=== PATIENT | female | born 1990 | race Caucasian/White ===

== ENCOUNTER 2021-05-23 18:58 | Emergency (ER) | payer MEDICAID ==
[~2021-05-23] VITALS: Ht 152.4 cm; Wt 45.4 kg
[2021-05-23 19:00] VITALS: BP 108/68
--- NOTE | 2021-05-23 19:03 | NUR ---
TO LOBBY A/W BED AMBULATORY
[2021-05-23] MEDS ORDERED: LORA10TA19 PO (20:45)
[2021-05-23] MEDS ORDERED: BEN50 PO (20:45)
[2021-05-23] MEDS ORDERED: BENC TP (20:45)
--- NOTE | 2021-05-23 21:05 | NUR ---
Patient evaluated by Dr. Broussard, no nursing care provided for this patient. Patient discharged at this time in stable condition. Discharge instructions given. Rx of benadryl cream, benadryl tablets, and claritin. Medication administration and possible side effects explained. All questions asked and answered prior discharge.
== END 2021-05-23 21:05 | disposition home or self-care (01) ==
LOC: MED 18:58
DX: R21 Rash and other nonspecific skin eruption (principal); L29.9 Pruritus, unspecified
CPT/HCPCS: 99282

== ENCOUNTER 2021-11-14 14:11 | Emergency (ER) | payer MEDICAID ==
[~2021-11-14] VITALS: Ht 144.8 cm; Wt 46.7 kg
[~2021-11-14 14:11] MED LIST: BEN50 PO; BENC TP; LORA10TA19 PO
[2021-11-14 15:18] VITALS: BP 117/74
[2021-11-14] MEDS ORDERED: CEPH-588 PO (15:51)
[2021-11-14] MEDS ORDERED: ACET-10509 PO (15:51)
--- NOTE | 2021-11-14 16:39 | NUR ---
NO NURSING CARE RENDERED.Patient discharged with v/s stable. Written and verbal after care instructions given and explained. Patient alert, oriented and verbalized understanding of instructions. Police with steady gait. All questions addressed prior to discharge. ID band removed. Patient advised to follow up with PMD. Rx TYLENOL, KEFLEX given. Patient educated on indication of medication including possible reaction and side effects. Opportunity to ask questions provided and answered.
== END 2021-11-14 16:39 | disposition home or self-care (01) ==
LOC: MED 14:11
DX: N39.0 Urinary tract infection, site not specified (principal); Z79.899 Other long term (current) drug therapy
CPT/HCPCS: 81002; 81025; 99283

== ENCOUNTER 2022-04-01 09:30 | Emergency (ER) | payer MEDICAID ==
[~2022-04-01] VITALS: Ht 152.4 cm; Wt 49.9 kg
[~2022-04-01 09:30] MED LIST changes: +ACET-10509 PO; +CEPH-588 PO
[2022-04-01 09:34] VITALS: BP 125/87
--- NOTE | 2022-04-01 10:01 | NUR ---
DR GARAY AT BEDSIDE EVALUATING PT
[2022-04-01] MEDS ORDERED: ONDANSETRON 4 MG/2 ML VIAL IVP ONE (10:05)
[2022-04-01] MEDS ORDERED: NACL 0.9% 1,000 ML IV SCH (10:05)
[2022-04-01] MEDS ORDERED: KETOROLAC 30 MG/ML VIAL IVP ONE (10:05)
--- NOTE | 2022-04-01 10:32 | NUR ---
PT TAKEN TO CT VIA [facility]
[2022-04-01 10:36] LABS: BASOPHILS # (AUTO) 0.1 K/uL (0.00-0.22); EOSINOPHILS # (AUTO) 0.3 K/uL (0-0.4); EOSINOPHILS % (AUTO) 5.1 % (0.0-4.0); HEMATOCRIT 29.3 % (36-48); HEMOGLOBIN 9.3 g/dL (12.0-16.0); LYMPHOCYTES # (AUTO) 1.6 K/uL (2.5-16.5); LYMPHOCYTES % (AUTO) 29.5 % (20.5-51.1); MEAN CORPUSCULAR HEMOGLOBIN 23 pg (27-31); MEAN CORPUSCULAR HGB CONC 32 g/dL (33-37); MEAN CORPUSCULAR VOLUME 73.7 fL (80-94); MONOCYTES # (AUTO) 0.7 K/uL (0.8-1.0); MONOCYTES % (AUTO) 12.5 % (1.7-9.3); NEUTROPHILS # (AUTO) 2.8 K/uL (1.8-7.7); NEUTROPHILS % (AUTO) 51.9 % (42.2-75.2); PLATELET COUNT (AUTO) 302 K/uL (140-450); RED BLOOD CELL COUNT(AUTO) 3.97 MIL/uL (4.20-5.40); RED CELL DISTRIBUTION WIDTH 16.7 % (11.6-13.7); WHITE BLOOD COUNT (AUTO) 5.4 K/uL (4.8-10.8)
[2022-04-01 10:42] LABS: APPEARANCE,URINE CLEAR (CLEAR); BILIRUBIN,URINE NEGATIVE (NEGATIVE); BLOOD, URINE TRACE-I (NEGATIVE); COLOR,URINE YELLOW (YELLOW); LEUKOCYTE ESTERASE ,URINE NEGATIVE (NEGATIVE); NITRITE, URINE NEGATIVE (NEGATIVE); UGLUCOSE NEGATIVE (NEGATIVE)
--- NOTE | 2022-04-01 10:50 | NUR ---
PT RETURNED FROM CT VIA [facility]
[2022-04-01 11:11] LABS: OTHER CASTS, URINE None Seen /LPF (None Seen); RBC,URINE 0-5 /HPF (0-5); WBC,URINE 0-5 /HPF (0-5)
[2022-04-01 11:12] LABS: ALBUMIN 3.9 g/dL (3.4-5.0); ANION GAP 9.2 (8-16); CARBON DIOXIDE 27.2 mmol/L (21-32); CREATININE 0.7 mg/dL (0.6-1.3); POTASSIUM 3.4 mmol/L (3.5-5.1); TOTAL BILIRUBIN 0.3 mg/dL (0.0-1.0)
[2022-04-01] MEDS ORDERED: ACET-8386 PO (11:52)
[2022-04-01] MEDS ORDERED: IBUP-2213 PO (11:52)
[2022-04-01] MEDS ORDERED: ONDA8TAB87 PO (11:52)
--- NOTE | 2022-04-01 12:07 | NUR ---
IV removed, catheter intact and site benign. Applied folded 4x4 gauze and tape to stop bleeding.
--- NOTE | 2022-04-01 12:07 | NUR ---
Patient discharged with v/s stable. Written and verbal after care instructions FOR ABDOMINAL PAIN AND NAUSEA/VOMITING given and explained. Patient alert, oriented and verbalized understanding of instructions. Ambulatory with steady gait. All questions addressed prior to discharge. IV REMOVED.ID band removed. Patient advised to follow up with PMD. Rx of HYDROCODONE, IBURPROFEN, ZOFRAN given. Opportunity to ask questions provided and answered.
--- NOTE | 2022-04-01 12:08 | NUR ---
The patient's care was reviewed and supervised by Vikki Bond RN.
[2022-04-01 12:09] VITALS: BP 104/65
== END 2022-04-01 12:07 | disposition home or self-care (01) ==
LOC: MED 09:30
DX: R10.11 Right upper quadrant pain (principal); M54.50 Low back pain, unspecified; R11.2 Nausea with vomiting, unspecified; Z79.899 Other long term (current) drug therapy; Z98.890 Other specified postprocedural states
CPT/HCPCS: 36415; 74176; 80053; 81001; 81025; 83690; 85025; 96361; 96374; 96375; 99284; J1885; J2405; J7030

== ENCOUNTER 2022-04-24 21:30 | Emergency (ER) | payer MEDICAID ==
[~2022-04-24] VITALS: Ht 152.4 cm; Wt 52.2 kg
[~2022-04-24 21:30] MED LIST changes: +ACET-8386 PO; +IBUP-2213 PO; +ONDA8TAB87 PO
[2022-04-24 21:35] VITALS: BP 140/81
--- NOTE | 2022-04-24 22:43 | NUR ---
XRAY AT BEDSIDE
--- NOTE | 2022-04-24 22:43 | NUR ---
MEDICAL INFORMATION OFFICER AT BEDSIDE OBTAINING SAMPLE
[2022-04-24 22:53] LABS: BASOPHILS # (AUTO) 0.1 K/uL (0.00-0.22); EOSINOPHILS # (AUTO) 0.2 K/uL (0-0.4); EOSINOPHILS % (AUTO) 2.3 % (0.0-4.0); HEMATOCRIT 30.1 % (36-48); HEMOGLOBIN 9.5 g/dL (12.0-16.0); LYMPHOCYTES # (AUTO) 2.2 K/uL (2.5-16.5); LYMPHOCYTES % (AUTO) 28.6 % (20.5-51.1); MEAN CORPUSCULAR HEMOGLOBIN 24 pg (27-31); MEAN CORPUSCULAR HGB CONC 32 g/dL (33-37); MEAN CORPUSCULAR VOLUME 74.3 fL (80-94); MONOCYTES % (AUTO) 13.1 % (1.7-9.3); NEUTROPHILS # (AUTO) 4.2 K/uL (1.8-7.7); PLATELET COUNT (AUTO) 352 K/uL (140-450); RED BLOOD CELL COUNT(AUTO) 4.05 MIL/uL (4.20-5.40); RED CELL DISTRIBUTION WIDTH 18.5 % (11.6-13.7); WHITE BLOOD COUNT (AUTO) 7.6 K/uL (4.8-10.8)
--- NOTE | 2022-04-24 22:57 | NUR ---
32 Y/O FEMALE BIB SELF FOR C/O r SIDED, INTERMITTENT CHEST PAIN RADIATING TO STERNAL X 2 DAYS. PATIENT STATES PAIN INCREASES SOB. NO HX OF SAME. NO PAIN AT THIS TIME. A/OX4, GCS-15; DENIES COUGH OR FEVER. UNLABORED BREATHING SPEAKING IN FULL SENTENCES; AMBULATORY W/O ASSISTANCE; NO EDEMA OF JVD. NKA DENIES HX
[2022-04-24 23:06] LABS: ANION GAP 9.7 (8-16); CARBON DIOXIDE 23.7 mmol/L (21-32); CREATININE 0.9 mg/dL (0.6-1.3); POTASSIUM 3.4 mmol/L (3.5-5.1); TOTAL BILIRUBIN 0.2 mg/dL (0.0-1.0)
[2022-04-24 23:12] LABS: LIPASE 163 U/L (73-393)
--- NOTE | 2022-04-25 00:20 | NUR ---
er md at bedside discussing pt results
[2022-04-25] MEDS ORDERED: NAPR-54 PO (00:22)
[2022-04-25 00:28] VITALS: BP 99/65
--- NOTE | 2022-04-25 00:29 | NUR ---
Patient discharged with v/s stable. Written and verbal after care instructions given and explained. Patient alert, oriented and verbalized understanding of instructions. Ambulatory with steady gait. All questions addressed prior to discharge. ID band removed. Patient advised to follow up with PMD. Rx of naprosyn given. Patient educated on indication of medication including possible reaction and side effects. Opportunity to ask questions provided and answered. a/ox4, vss, ambulatory, unlabored breathing, and calm demenaor.
== END 2022-04-25 00:29 | disposition home or self-care (01) ==
LOC: MED 21:30
DX: R07.9 Chest pain, unspecified (principal)
CPT/HCPCS: 36415; 71045; 80053; 83690; 83880; 84484; 85025; 93005; 99285

== ENCOUNTER 2022-11-19 08:15 | Emergency (ER) | payer MEDICAID ==
[~2022-11-19] VITALS: Ht 149.9 cm; Wt 48.1 kg
[~2022-11-19 08:15] MED LIST changes: -ACET-8386 PO; +ACET-8905 PO; +NAPR-54 PO
[2022-11-19 08:21] VITALS: BP 112/86
--- NOTE | 2022-11-19 09:00 | NUR ---
32/F PRESENTS TO ED WITH C/O BILATERAL FLANK PAIN SINCE FRIDAY, STATES PAIN WORSENS WITH MOVEMENT. REPORTS TAKING ALEVE WITH NO RELIEF, DENIES DYSURIA, HEMATURIA, DENIES RECENT INJURY OR TRAUMA.
[2022-11-19] MEDS ORDERED: KETOROLAC 30 MG/ML VIAL IM ONE (09:10)
--- NOTE | 2022-11-19 09:15 | NUR ---
URINE SAMPLE COLLECTED AND WALKED TO LAB
[2022-11-19 11:44] LABS: APPEARANCE,URINE CLEAR (CLEAR); BILIRUBIN,URINE NEGATIVE (NEGATIVE); BLOOD, URINE 1+ (NEGATIVE); COLOR,URINE YELLOW (YELLOW); LEUKOCYTE ESTERASE ,URINE TRACE (NEGATIVE); NITRITE, URINE NEGATIVE (NEGATIVE); PH,URINE 6.5 (5.0-9.0); UGLUCOSE NEGATIVE (NEGATIVE)
[2022-11-19] MEDS ORDERED: NITR100C7 PO (12:05)
[2022-11-19] MEDS ORDERED: ACET-8905 PO (12:05)
[2022-11-19 12:12] VITALS: BP 127/66
--- NOTE | 2022-11-19 12:12 | NUR ---
Patient discharged with v/s stable. Written and verbal after care instructions ABOUT ACUTE BACK PAIN AND URINARY TRACT INFECTION given and explained. Patient alert, oriented and verbalized understanding of instructions. Ambulatory with steady gait. All questions addressed prior to discharge. ID band removed. Patient advised to follow up with PMD. Rx of NORCO 5-325, MACROBID given. Patient educated on indication of medication including possible reaction and side effects. Opportunity to ask questions provided and answered.
[2022-11-19 12:17] LABS: WBC,URINE 0-5 /HPF (0-5)
== END 2022-11-19 12:12 | disposition home or self-care (01) ==
LOC: MED 08:15
DX: N39.0 Urinary tract infection, site not specified (principal)
CPT/HCPCS: 81001; 81025; 87086; 96372; 99283; J1885

== ENCOUNTER 2023-11-04 10:05 | Emergency (ER) | payer MEDICAID ==
[~2023-11-04] VITALS: Ht 142.2 cm; Wt 46.3 kg
[~2023-11-04 10:05] MED LIST changes: +NITR100C7 PO
[2023-11-04 10:30] VITALS: BP 126/87; PULSE 67; RESP 20; TEMP 97.9; O2SAT 99
[2023-11-04] MEDS ORDERED: KETOROLAC 30 MG/ML VIAL IM ONE (10:50)
[2023-11-04 10:58] LABS: APPEARANCE,URINE SL CLOUDY (CLEAR); BILIRUBIN,URINE NEGATIVE (NEGATIVE); BLOOD, URINE TRACE-I (NEGATIVE); COLOR,URINE YELLOW (YELLOW); LEUKOCYTE ESTERASE ,URINE 1+ (NEGATIVE); NITRITE, URINE NEGATIVE (NEGATIVE); PROTEIN,URINE NEGATIVE (NEGATIVE); UGLUCOSE NEGATIVE (NEGATIVE); UROBILINOGEN,URINE 0.2 EU/dL (0.2 - 1)
[2023-11-04 11:05] LABS: BACTERIA,URINE 1+ /HPF (None Seen); MUCUS,URINE None Seen /LPF (None Seen); RBC,URINE 0-5 /HPF (0-5); SQUAMOUS EPITHELIAL CELL,UR 4-10 (MOD) /LPF (0-3 (FEW))
[2023-11-04] MEDS ORDERED: CAPS1ADH5 TP (11:27)
[2023-11-04] MEDS ORDERED: CEPH-588 PO (11:27)
[2023-11-04] MEDS ORDERED: NAPR-1704 PO (11:27)
[2023-11-04 11:34] VITALS: BP 120/80; PULSE 71; RESP 20; TEMP 98; O2SAT 99
== END 2023-11-04 11:34 | disposition home or self-care (01) ==
LOC: MED 10:05
DX: S39.012A Strain of muscle, fascia and tendon of lower back, initial encounter (principal); N39.0 Urinary tract infection, site not specified; Z79.899 Other long term (current) drug therapy; X58.XXXA Exposure to other specified factors, initial encounter; Y93.89 Activity, other specified; Y92.89 Other specified places as the place of occurrence of the external cause; Y99.8 Other external cause status
CPT/HCPCS: 72100; 81001; 81025; 87086; 96372; 99284; J1885

== ENCOUNTER 2023-12-09 22:12 | Emergency (ER) | payer MEDICAID ==
[~2023-12-09] VITALS: Ht 149.9 cm; Wt 45.4 kg
[~2023-12-09 22:12] MED LIST changes: +CAPS1ADH5 TP; +NAPR-1704 PO
[2023-12-09 22:15] VITALS: BP 108/62; PULSE 87; RESP 19; TEMP 98.5; O2SAT 98
[2023-12-09 22:55] LABS: FLU A ANTIGEN negative (NEGATIVE); FLU B ANTIGEN NEGATIVE (NEGATIVE)
[2023-12-10 03:08] LABS: BASOPHILS % (AUTO) 0.9 % (0.0-2.0); EOSINOPHILS % (AUTO) 1.1 % (0.0-4.0); HEMATOCRIT 28.3 % (36-48); HEMOGLOBIN 9.2 g/dL (12.0-16.0); LYMPHOCYTES # (AUTO) 1.4 K/uL (2.5-16.5); LYMPHOCYTES % (AUTO) 31.6 % (20.5-51.1); MEAN CORPUSCULAR HEMOGLOBIN 23 pg (27-31); MEAN CORPUSCULAR HGB CONC 32 g/dL (33-37); NEUTROPHILS # (AUTO) 1.8 K/uL (1.8-7.7); NEUTROPHILS % (AUTO) 42.4 % (42.2-75.2); PLATELET COUNT (AUTO) 269 K/uL (140-450); RED BLOOD CELL COUNT(AUTO) 3.93 MIL/uL (4.20-5.40); RED CELL DISTRIBUTION WIDTH 18.4 % (11.6-13.7); WHITE BLOOD COUNT (AUTO) 4.3 K/uL (4.8-10.8)
[2023-12-10 03:16] LABS: ANION GAP 11.1 (8-16); CALCIUM 8.4 mg/dL (8.5-10.1); CARBON DIOXIDE 26.9 mmol/L (21-32); CREATININE 0.7 mg/dL (0.6-1.3)
[2023-12-10] MEDS ORDERED: ACETAMINOPHEN EXTRA STRENGTH 500 MG TAB PO ONE (03:20)
[2023-12-10] MEDS ORDERED: KETOROLAC 30 MG/ML VIAL IM ONE (03:20)
[2023-12-10 03:22] LABS: ALBUMIN 3.6 g/dL (3.4-5.0); TOTAL BILIRUBIN 0.1 mg/dL (0.0-1.0); TOTAL PROTEIN, SERUM 8.1 g/dL (6.4-8.2)
[2023-12-10] MEDS ORDERED: ONDANSETRON 4 MG ODT PO ONE (03:40)
[2023-12-10 04:32] LABS: APPEARANCE,URINE CLEAR (CLEAR); BILIRUBIN,URINE NEGATIVE (NEGATIVE); BLOOD, URINE TRACE-I (NEGATIVE); COLOR,URINE YELLOW (YELLOW); LEUKOCYTE ESTERASE ,URINE TRACE (NEGATIVE); NITRITE, URINE NEGATIVE (NEGATIVE); PROTEIN,URINE NEGATIVE (NEGATIVE); UGLUCOSE NEGATIVE (NEGATIVE); UROBILINOGEN,URINE 0.2 EU/dL (0.2 - 1)
[2023-12-10 04:55] LABS: RBC,URINE 0-5 /HPF (0-5)
[2023-12-10 04:56] LABS: BACTERIA,URINE 10-30 (MOD) /HPF (None Seen); MUCUS,URINE 1+ /LPF (None Seen); SQUAMOUS EPITHELIAL CELL,UR 4-10 (MOD) /LPF (0-3 (FEW))
[2023-12-10] MEDS ORDERED: ONDA-188 PO (05:19)
[2023-12-10 05:45] VITALS: BP 108/62; PULSE 87; RESP 19; TEMP 98.5; O2SAT 98
== END 2023-12-10 05:45 | disposition home or self-care (01) ==
LOC: MED 22:12
DX: R11.2 Nausea with vomiting, unspecified (principal); Z20.822 Contact with and (suspected) exposure to COVID-19; R05.9 Cough, unspecified; R09.81 Nasal congestion; M79.18 Myalgia, other site; Z79.899 Other long term (current) drug therapy; Z79.1 Long term (current) use of non-steroidal anti-inflammatories (NSAID); Z79.2 Long term (current) use of antibiotics
CPT/HCPCS: 36415; 80053; 81001; 81025; 83690; 85025; 87086; 87426; 87804; 96372; 99283; J1885; Q0162